=== PATIENT | male | born 1970 | race Caucasian/White ===

== ENCOUNTER 2016-09-20 16:59 | Emergency (ER) | payer OTHER ==
[~2016-09-20] VITALS: Ht 185.4 cm; Wt 76.7 kg
[2016-09-20] MEDS ORDERED: PERCOCET 5/31 TABLET PO (19:51)
[2016-09-20 21:27] VITALS: BP 117/104
== END 2016-09-20 21:28 ==
LOC: EME 16:59
PROC: 2W39X1Z Immobilization of Left Upper Extremity using Splint (ICD-10-PCS; principal; 2016-09-20)
DX: S09.90XA Unspecified injury of head, initial encounter (principal); S52.125A Nondisplaced fracture of head of left radius, initial encounter for closed fracture; M54.2 Cervicalgia; M79.602 Pain in left arm; W05.0XXA Fall from non-moving wheelchair, initial encounter; Y92.129 Unspecified place in nursing home as the place of occurrence of the external cause
CPT/HCPCS: 70450; 72125; 73030; 73060; 73080; 73090; 73110; 99281; 99285